=== PATIENT | female | born 1995 | race Caucasian/White ===

== ENCOUNTER 2019-04-07 16:12 | Outpatient (CLI) | payer OTHER ==
--- NOTE | 2019-04-07 16:44 | RAD ---
TWO VIEW ABDOMEN: 04/07/19 INDICATIONS: Early satiety. Bloating. Scattered stool and gas throughout the colon. Scattered small bowel gas is unremarkable. No evidence of soft tissue mass or abnormal calcification. No free air. Osseous structures unremarkable. IMPRESSION: Unremarkable bowel gas pattern. POS: [facility]
== END 2019-04-07 16:13 | disposition home or self-care (01) ==
LOC: BICRAD 16:12
PROVIDERS: ATTEND Internal Medicine Gastroenterology
DX: R14.0 Abdominal distension (gaseous) (principal); R68.81 Early satiety
CPT/HCPCS: 74019